=== PATIENT | male | born 1960 | race Caucasian/White ===

== ENCOUNTER 2019-08-21 11:48 | Emergency (ER) | payer OTHER ==
[2019-08-21] MEDS ORDERED: Sodium Chloride 0.9% 1,000 ML IV SCH (12:00)
[2019-08-21] MEDS ORDERED: EPINEPHrine 1 MG/ML SDV IM ONE (12:07)
[2019-08-21] MEDS ORDERED: diphenhydrAMINE 50 MG Cap PO ONE (13:14)
[2019-08-21] MEDS ORDERED: Sodium Chloride 0.9% 500 ML IV ONE (13:35)
--- NOTE | 2019-08-21 17:43 | EDM.PDOC ---
ED HPI GENERAL MEDICAL PROBLEM - General Chief Complaint: Allergic Reaction Stated Complaint: ALLERGIC REACTION Time Seen by Provider: 08/21/19 11:55 Source of Information: Reports: Patient History Limitations: Reports: No Limitations - History of Present Illness INITIAL COMMENTS - FREE TEXT/NARRATIVE: This is a 58yo M who was recently bit by bees and now having a whole body re action. He notes 3-4 or maybe a few more bites of the neck area. He denies prior anaphylactic reactions. Denies any shortness of breath, no scratchy throat, but does have lip swelling and facial swelling. Onset: Sudden Location: Reports: Generalized Severity: Moderate - Related Data Allergies Allergy/AdvReac Type Severity Reaction Status Date / Time No Known Allergies Allergy Verified 08/21/19 12:06 Home Meds: Home Meds NK [No Known Home Meds] 08/21/19 [History] Past Medical History - Past Surgical History GI Surgical History: Reports: Hernia Repair/Other Social & Family History - Family History Family Medical History: Noncontributory - Tobacco Use Smoking Status *Q: Current Every Day Smoker Years of Tobacco use: 30 Packs/Tins Daily: 0.5 ED ROS ALLERGIC REACTION - Review of Systems Review Of Systems: Comprehensive ROS is negative, except as noted in HPI. ED EXAM GENERAL NO PERIP PULSE - Physical Exam Exam: See Below Exam Limited By: No Limitations General Appearance: Alert, WD/WN, Mild Distress Ears: Normal External Exam Nose: Normal Inspection Throat/Mouth: Other (mildly swollen lips) Respiratory/Chest: No Respiratory Distress, Lungs Clear, Normal Breath Sounds, No Accessory Muscle Use, Chest Non-Tender Cardiovascular: Normal Peripheral Pulses, Tachycardia Back Exam: Normal Inspection Extremities: Normal Inspection, No Pedal Edema Skin Exam: Rash Course - Vital Signs Last Recorded V/S: Last Vital Signs Temp 37.2 C 08/21/19 12:39 Pulse 134 H 08/21/19 13:51 Resp 14 08/21/19 13:27 BP 135/90 08/21/19 13:51 Pulse Ox 96 08/21/19 13:51 - Orders/Labs/Meds Meds: Medications Discontinued Medications Generic Name Dose Route Start Last Admin Trade Name Freq PRN Reason Stop Dose Admin Diphenhydramine HCl 50 mg 08/21/19 13:14 08/21/19 11:58 Benadryl PO 08/21/19 13:15 50 mg ONETIME ONE Administration Epinephrine HCl 0.5 mg 08/21/19 12:07 08/21/19 11:50 Adrenalin IM 08/21/19 12:08 0.8 mg ONETIME ONE Administration Sodium Chloride 1,000 mls @ 999 mls/hr 08/21/19 12:00 08/21/19 13:22 Normal Saline IV 999 mls/hr ASDIRECTED DEMETRIUS Administration Sodium Chloride 500 mls @ 999 mls/hr 08/21/19 13:35 08/21/19 13:36 Normal Saline IV 08/21/19 14:05 999 mls/hr .BOLUS ONE Administration Departure - Departure Time of Disposition: 14:20 Disposition: Home, Self-Care 01 Condition: Good Clinical Impression: Wasp sting-induced anaphylaxis Qualifiers: Encounter type: initial encounter Injury intent: accidental or unintentional Qualified Code(s): T63.461A - Toxic effect of venom of wasps, accidental (unintentional), initial encounter - Discharge Information Instructions: Diphenhydramine capsules or tablets, How to Use an Auto-Injector Pen, Anaphylactic Reaction, Adult, [id number] Referrals: PCP,None [Primary Care Provider] - Forms: ED Department Discharge Care Plan Goals: Take 2 tablets (total 50mg) every 6 hours until symptoms of rash and edema subside. Then can take 25mg every 6 hours as symptoms lessen. Carry your epi pen with you. Can also carry benadryl with you. Sepsis Event Note (ED) - Evaluation Sepsis Screening Result: No Definite Risk - Focused Exam Vital Signs: Vital Signs Temp Pulse Resp BP Pulse Ox 08/21/19 13:51 134 H 135/90 96 08/21/19 13:27 14 135/90 96 08/21/19 12:39 37.2 C 110 H 20 147/97 H 96 08/21/19 12:00 37.7 C 120 H 16 147/99 H 95 - Problem List & Annotations (1) Wasp sting-induced anaphylaxis SNOMED Code(s): 915910102 Code(s): T63.461A - TOXIC EFFECT OF VENOM OF WASPS, ACCIDENTAL, INIT Status: Acute Qualifiers: Encounter type: initial encounter Injury intent: accidental or unintentional Qualified Code(s): T63.461A - Toxic effect of venom of wasps, accidental (unintentional), initial encounter - Problem List Review Problem List Initiated/Reviewed/Updated: Yes - Assessment/Plan Plan: Counseled on prevention and use of epi pen and benadryl. Discussed close f/u until resolution and rtc for PCP evaluation this week.
== END 2019-08-21 14:20 | disposition home or self-care (01) ==
LOC: LB.ED 11:48
DX: T63.461A Toxic effect of venom of wasps, accidental (unintentional), initial encounter (principal); T78.2XXA Anaphylactic shock, unspecified, initial encounter; F17.210 Nicotine dependence, cigarettes, uncomplicated
CPT/HCPCS: 96372; 99282; A9270; J0171; J7030; J7040

== ENCOUNTER 2021-07-22 13:12 | Emergency (ER) | payer OTHER ==
[2021-07-22] MEDS ORDERED: hydrALAZINE 20 MG/ML SDV IVPUSH ONE ×2 (13:53→16:20)
[2021-07-22] MEDS ORDERED: Sodium Chloride 0.9% 10 ML Syringe FLUSH PRN (13:53)
[2021-07-22] MEDS ORDERED: hydrALAZINE 20 MG/ML SDV ONE ×2 (14:26→16:33)
[2021-07-22 15:14] LABS: TROPONIN I HIGH SENSITIVITY 6.5 pg/ml (<=60.4)
== END 2021-07-22 16:42 | disposition home or self-care (01) ==
LOC: LB.ED 13:12
DX: I16.0 Hypertensive urgency (principal); I10 Essential (primary) hypertension; R25.1 Tremor, unspecified; I48.91 Unspecified atrial fibrillation; Z87.891 Personal history of nicotine dependence
CPT/HCPCS: 36415; 80048; 81001; 84484; 85025; 93005; 96374; 99283; J0360; 93010; 99284

== ENCOUNTER 2021-09-03 08:15 | Day surgery (SDC) | payer OTHER ==
[~2021-09-03 08:15] MED LIST: Metoclopramide 10 MG/2 ML SDV IV PRN
[2021-09-03] MEDS: Sodium Chloride 0.9% 1,000 ML IV SCH (08:45)
[2021-09-03] MEDS ORDERED: Propofol 1,000 MG/100 ML SDV ONE (10:00)
== END 2021-09-03 11:25 | disposition home or self-care (01) ==
LOC: LB.SDS 08:15
PROVIDERS: ATTEND Surgery
DX: Z12.11 Encounter for screening for malignant neoplasm of colon (principal); D12.3 Benign neoplasm of transverse colon; K57.30 Diverticulosis of large intestine without perforation or abscess without bleeding; I10 Essential (primary) hypertension; I48.91 Unspecified atrial fibrillation; G47.33 Obstructive sleep apnea (adult) (pediatric)
CPT/HCPCS: 45384; J2704; J7030; 88305

== ENCOUNTER 2022-04-07 08:08 | Observation (INO) | payer OTHER ==
[2022-04-07] MEDS ORDERED: Sodium Chloride 0.9% 10 ML Syringe FLUSH PRN ×2 (08:34→08:37)
[2022-04-07] MEDS ORDERED: Ondansetron 4 MG/2 ML SDV IVPUSH ONE (08:38)
[2022-04-07] MEDS ORDERED: Sodium Chloride 0.9% 1,000 ML IV SCH (08:45)
[2022-04-07] MEDS ORDERED: Ondansetron 4 MG/2 ML SDV ONE (08:55)
[2022-04-07] MEDS ORDERED: Prochlorperazine 10 MG/2 ML SDV IVPUSH ONE ×2 (09:15→10:37)
[2022-04-07] MEDS ORDERED: Labetalol 100 MG/20 ML MDV IVPUSH ONE (09:33)
[2022-04-07] MEDS ORDERED: Prochlorperazine 10 MG/2 ML SDV ONE (09:33)
[2022-04-07] MEDS ORDERED: Labetalol 100 MG/20 ML MDV ONE (09:44)
[2022-04-07] MEDS ORDERED: hydrALAZINE 20 MG/ML SDV IVPUSH ONE ×3 (09:59→10:15)
[2022-04-07] MEDS ORDERED: hydrALAZINE 20 MG/ML SDV ONE (10:11)
[2022-04-07] MEDS ORDERED: Metoprolol Tartrate 5 MG/5 ML SDV IVPUSH ONE (10:33)
[2022-04-07] MEDS: Lactated Ringers 1,000 ML IV SCH ×2 (10:35→15:25)
[2022-04-07] MEDS ORDERED: Metoprolol Tartrate 5 MG/5 ML SDV ONE (10:51)
[2022-04-07] MEDS ORDERED: LORazepam 2 MG/ML SDV IVPUSH ONE (11:08)
[2022-04-07] MEDS ORDERED: LORazepam 2 MG/ML SDV ONE (11:20)
[2022-04-07] MEDS ORDERED: Promethazine 12.5 MG in Sodium Chloride 0.9% 50 ML IV PRN (14:14)
[2022-04-07] MEDS: Propranolol 20 MG Tab PO SCH ×2 (18:50→19:06)
[2022-04-07] MEDS ORDERED: Hydrochlorothiazide 12.5 MG Cap PO SCH (20:00)
[2022-04-07] MEDS ORDERED: FLECAINIDE 50MG TABLET PO SCH (20:00)
[2022-04-07] MEDS ORDERED: Lisinopril 5 MG Tab PO SCH (20:00)
[2022-04-07] MEDS ORDERED: Apixaban 5 MG Tab PO SCH (20:00)
[2022-04-07] MEDS: Apixaban 5 MG Tab PO SCH (20:38)
[2022-04-07] MEDS: Lisinopril 5 MG Tab PO SCH (20:39)
[2022-04-07] MEDS: Metoprolol Tartrate 50 MG Tab PO SCH (20:41)
[2022-04-08] MEDS: Lactated Ringers 1,000 ML IV SCH (03:02)
[2022-04-08] MEDS ORDERED: Non-Formulary Medication 1 Each (Levothyroxine [Levothyroxine] 125 MCG Tablet) PO SCH (07:00)
[2022-04-08] MEDS ORDERED: LEVOTHYROXINE 125 MCG PO SCH (07:00)
[2022-04-08] MEDS ORDERED: Metoprolol Succinate 25 MG Tab.ER PO SCH (08:00)
[2022-04-08] MEDS ORDERED: FLECAINIDE 50 MG PO SCH ×2 (08:00)
[2022-04-08] MEDS ORDERED: Non-Formulary Medication 1 Each (Magnesium [Magnesium] 200 MG Tablet) PO SCH (08:00)
[2022-04-08] MEDS ORDERED: Folic Acid 0.4 MG Tab PO SCH (08:00)
[2022-04-08] MEDS: Apixaban 5 MG Tab PO SCH (09:22)
[2022-04-08] MEDS: Lisinopril 5 MG Tab PO SCH (09:22)
[2022-04-08] MEDS: Propranolol 20 MG Tab PO SCH (09:22)
[2022-04-08] MEDS: Metoprolol Tartrate 50 MG Tab PO SCH (09:24)
[2022-04-08] MEDS ORDERED: Magnesium Oxide 400 MG Tab ONE (09:30)
== END 2022-04-08 12:07 | disposition home or self-care (01) ==
LOC: LB.ED 08:08 → LB.MS 14:14
PROVIDERS: ADMIT Surgery; ATTEND Surgery
DX: I16.0 Hypertensive urgency (principal); G25.2 Other specified forms of tremor; K52.9 Noninfective gastroenteritis and colitis, unspecified; G91.9 Hydrocephalus, unspecified; I48.91 Unspecified atrial fibrillation; G47.30 Sleep apnea, unspecified; J44.9 Chronic obstructive pulmonary disease, unspecified; F32.A Depression, unspecified; E03.9 Hypothyroidism, unspecified; Z79.899 Other long term (current) drug therapy; Z91.030 Bee allergy status; Z79.890 Hormone replacement therapy; Z98.890 Other specified postprocedural states; Z20.822 Contact with and (suspected) exposure to COVID-19
CPT/HCPCS: 36415; 70450; 80053; 81003; 83605; 83735; 84100; 84443; 84484; 85027; 87635; 93005; 93010; 96361; 96374; 96375; 96376; 99222; 99238; 99285; A9270; G0378; J0360; J0780; J2060; J2405; J3490; J7030; J7120; U0002

== ENCOUNTER 2022-09-14 11:08 | Emergency (ER) | payer OTHER ==
[2022-09-14 11:25] VITALS: BP 154/98; PULSE 66
[2022-09-14 12:02] LABS: BASOPHILS ABSOLUTE AUTO 0.07 K/uL (0.02-0.10); BASOPHILS PERCENT AUTO 1.1 % (0.0-0.5); EOSINOPHILS ABSOLUTE AUTO 0.19 K/uL (0.04-0.40); HEMATOCRIT 43.1 % (40.0-54.0); HEMOGLOBIN 14.6 g/dL (13.0-18.0); LYMPHOCYTES ABSOLUTE AUTO 1.91 K/uL (1.50-4.00); LYMPHOCYTES PERCENT AUTO 30.3 % (20.0-40.0); MEAN CORPUSCULAR HEMOGLOBIN 34.4 pg (27.0-32.0); MEAN CORPUSCULAR HGB CONC 33.9 g/dL (31.0-35.0); MEAN CORPUSCULAR VOLUME 101 fL (76-96); MEAN PLATELET VOLUME 9.7 fL (6.0-10.0); MONOCYTES ABSOLUTE AUTO 0.64 K/uL (0.20-0.80); MONOCYTES PERCENT AUTO 10.2 % (3.0-10.0); NEUTROPHILS ABSOLUTE AUTO 3.49 K/uL (2.00-7.50); NEUTROPHILS PERCENT AUTO 55.4 % (45.0-70.0); PLATELET COUNT,PLT 202 K/uL (150-400); RED BLOOD CELL COUNT 4.25 M/uL (4.50-6.50); RED CELL DISTRIBUTION WIDTH 11.4 % (11.0-16.0); WHITE BLOOD CELL COUNT,WBC 6.3 K/uL (4.0-11.0)
[2022-09-14 12:34] LABS: A/G RATIO 0.9 (0.8-2.0); ALBUMIN 3.4 g/dL (3.4-5.0); ANION GAP 13.9 mmol/L (5.0-15.0); BILIRUBIN TOTAL 0.3 mg/dL (0.0-1.0); CARBON DIOXIDE,CO2 27.1 mmol/L (21.0-32.0); CREATININE 1.15 mg/dL (0.70-1.30); EST CRCL DRUG DOSING (CG) 69.65 mL/min; PROTEIN TOTAL,TP 7.4 g/dL (6.4-8.2)
[2022-09-14 12:34] LABS: APPEARANCE,URINE CLEAR (CLEAR); BILIRUBIN,URINE NEGATIVE (NEGATIVE); GLUCOSE,URINE NEGATIVE (NEGATIVE); KETONES,URINE NEGATIVE (NEGATIVE); LEUKOCYTE ESTERASE,URINE NEGATIVE (NEGATIVE); NITRITE,URINE NEGATIVE (NEGATIVE); OCCULT BLOOD,URINE NEGATIVE (NEGATIVE); PROTEIN,URINE NEGATIVE (NEGATIVE); UROBILINOGEN,URINE 0.2 E.U./dL (0.2-1.0)
[2022-09-14 12:39] LABS: COLOR,URINE YELLOW; RBC,URINE 0-5 /HPF; WBC,URINE 0-5 /HPF
[2022-09-14 12:41] LABS: AMPHETAMINES SCREEN, URINE NEGATIVE (NEGATIVE); BARBITURATE SCREEN,URINE NEGATIVE (NEGATIVE); BENZODIAZEPINES SCREEN,URINE NEGATIVE (NEGATIVE); METHADONE SCREEN, URINE NEGATIVE (NEGATIVE); METHAMPHETAMINES SCREEN, URINE NEGATIVE (NEGATIVE); OXYCODONE SCREEN,URINE NEGATIVE (NEGATIVE); THC SCREEN,URINE 50 NG/ML NEGATIVE (NEGATIVE)
[2022-09-14 12:44] LABS: MAGNESIUM 2.1 mg/dL (1.8-2.4)
== END 2022-09-14 13:17 ==
LOC: LB.ED 11:08
DX: F10.10 Alcohol abuse, uncomplicated (principal); I48.91 Unspecified atrial fibrillation; I10 Essential (primary) hypertension; J44.9 Chronic obstructive pulmonary disease, unspecified; Z79.01 Long term (current) use of anticoagulants; Z79.899 Other long term (current) drug therapy; Z91.030 Bee allergy status
CPT/HCPCS: 36415; 80053; 80307; 81001; 83735; 84443; 85025; 99283; 99284

== ENCOUNTER 2024-05-27 08:05 | Emergency (ER) | payer MEDICAID ==
[2024-05-27 08:45] LABS: BASOPHILS ABSOLUTE AUTO 0.08 K/uL (0.02-0.10); EOSINOPHILS ABSOLUTE AUTO 0.21 K/uL (0.04-0.40); EOSINOPHILS PERCENT AUTO 2.7 % (1.0-5.0); HEMOGLOBIN 13.8 g/dL (13.0-18.0); LYMPHOCYTES ABSOLUTE AUTO 1.12 K/uL (1.50-4.00); LYMPHOCYTES PERCENT AUTO 14.2 % (20.0-40.0); MEAN CORPUSCULAR HEMOGLOBIN 31.5 pg (27.0-32.0); MEAN CORPUSCULAR HGB CONC 32.9 g/dL (31.0-35.0); MEAN CORPUSCULAR VOLUME 96 fL (76-96); MEAN PLATELET VOLUME 9.5 fL (6.0-10.0); MONOCYTES ABSOLUTE AUTO 0.72 K/uL (0.20-0.80); MONOCYTES PERCENT AUTO 9.1 % (3.0-10.0); NEUTROPHILS ABSOLUTE AUTO 5.74 K/uL (2.00-7.50); PLATELET COUNT,PLT 291 K/uL (150-400); RED BLOOD CELL COUNT 4.38 M/uL (4.50-6.50); WHITE BLOOD CELL COUNT,WBC 7.9 K/uL (4.0-11.0)
[2024-05-27] MEDS: Hydrochlorothiazide 25 MG Tab PO ONE (08:51)
[2024-05-27] MEDS: Metoprolol Tartrate 50 MG Tab PO ONE (08:52)
[2024-05-27] MEDS: Lisinopril 5 MG Tab PO ONE (08:52)
[2024-05-27 09:06] LABS: A/G RATIO 0.6 (0.8-2.0); ALBUMIN 2.7 g/dL (3.4-5.0); ANION GAP 12.8 mmol/L (5.0-15.0); BILIRUBIN TOTAL 0.4 mg/dL (0.0-1.0); BUN/CREATININE RATIO 9.8 (6-25); CALCIUM 8.8 mg/dL (8.5-10.1); CARBON DIOXIDE,CO2 24.3 mmol/L (21.0-32.0); CREATININE 0.92 mg/dL (0.70-1.30); EST CRCL DRUG DOSING (CG) 84.86 mL/min; POTASSIUM,K 4.1 mmol/L (3.5-5.1); PROTEIN TOTAL,TP 7.2 g/dL (6.4-8.2)
== END 2024-05-27 13:01 ==
LOC: LB.ED 08:05
DX: G44.59 Other complicated headache syndrome (principal); I10 Essential (primary) hypertension; I48.91 Unspecified atrial fibrillation; J44.9 Chronic obstructive pulmonary disease, unspecified; E03.9 Hypothyroidism, unspecified; Z91.030 Bee allergy status; Z79.899 Other long term (current) drug therapy; Z79.01 Long term (current) use of anticoagulants
CPT/HCPCS: 36415; 70450; 80053; 85025; 86140; 99285; A0425; A0428; A9270-GY

== ENCOUNTER 2024-06-17 08:37 | Emergency (ER) | payer MEDICAID ==
[2024-06-17] MEDS ORDERED: Dexamethasone 4 MG Tab ONE (09:30)
[2024-06-17] MEDS ORDERED: Sodium Chloride 0.9% 10 ML Syringe FLUSH PRN (09:32)
[2024-06-17] MEDS: Dexamethasone 4 MG Tab PO ONE (09:44)
== END 2024-06-17 10:00 | disposition home or self-care (01) ==
LOC: LB.ED 08:37
DX: G93.6 Cerebral edema (principal); C78.00 Secondary malignant neoplasm of unspecified lung; I48.91 Unspecified atrial fibrillation; I10 Essential (primary) hypertension; J44.9 Chronic obstructive pulmonary disease, unspecified; E03.9 Hypothyroidism, unspecified; Z91.030 Bee allergy status; Z79.01 Long term (current) use of anticoagulants; Z79.890 Hormone replacement therapy; Z79.899 Other long term (current) drug therapy
CPT/HCPCS: 99284; J8540

== ENCOUNTER 2024-07-01 10:57 | Inpatient (IN) | payer MEDICAID ==
[2024-07-01] MEDS ORDERED: Sodium Chloride 0.9% 10 ML Syringe FLUSH PRN (11:21)
[2024-07-01 12:00] LABS: HEMATOCRIT 43.3 % (40.0-54.0); HEMOGLOBIN 14.9 g/dL (13.0-18.0); MEAN CORPUSCULAR HEMOGLOBIN 31.5 pg (27.0-32.0); MEAN CORPUSCULAR HGB CONC 34.4 g/dL (31.0-35.0); MEAN PLATELET VOLUME 10.1 fL (6.0-10.0); RED BLOOD CELL COUNT 4.73 M/uL (4.50-6.50); RED CELL DISTRIBUTION WIDTH 12.8 % (11.0-16.0); WHITE BLOOD CELL COUNT,WBC 15.3 K/uL (4.0-11.0)
[2024-07-01] MEDS: Sodium Chloride 0.9% 1,000 ML IV SCH (12:20)
[2024-07-01 12:24] LABS: BLOOD UREA NITROGEN,BUN 27 mg/dL (8-26); BUN/CREATININE RATIO 26.2 (6-25); CALCIUM 8.8 mg/dL (8.5-10.1); CARBON DIOXIDE,CO2 26.9 mmol/L (21.0-32.0); CHLORIDE,CL 94 mmol/L (98-107); CREATININE 1.03 mg/dL (0.70-1.30); ESTIMATED GFR 82 mL/min (>60); GLUCOSE RANDOM 396 mg/dL (74-100); MAGNESIUM 1.6 mg/dL (1.8-2.4); POTASSIUM,K 4.9 mmol/L (3.5-5.1); SODIUM,NA 130 mmol/L (136-145); TROPONIN I HIGH SENSITIVITY 10.8 pg/ml (<=60.4)
[2024-07-01] MEDS: Metoprolol Tartrate 5 MG/5 ML SDV IVPUSH ONE (13:12)
[2024-07-01 13:30] LABS: APPEARANCE,URINE CLEAR (CLEAR); BILIRUBIN,URINE NEGATIVE (NEGATIVE); COLOR,URINE YELLOW; GLUCOSE,URINE >=1000 mg/dL (NEGATIVE); KETONES,URINE TRACE mg/dL (NEGATIVE); LEUKOCYTE ESTERASE,URINE NEGATIVE (NEGATIVE); NITRITE,URINE NEGATIVE (NEGATIVE); OCCULT BLOOD,URINE NEGATIVE (NEGATIVE); PROTEIN,URINE NEGATIVE (NEGATIVE); UROBILINOGEN,URINE 0.2 E.U./dL (0.2-1.0)
[2024-07-01] MEDS: Dexamethasone 4 MG/ML SDV IVPUSH ONE (13:41)
[2024-07-01] MEDS: Insulin Regular, Human 100 Units/ML 10 ML Vial IV ONE (13:46)
[2024-07-01] MEDS ORDERED: levETIRAcetam 500 MG Tab PO SCH (14:00)
[2024-07-01] MEDS: levETIRAcetam 500 MG Tab PO ONE (14:01)
[2024-07-01] MEDS: Sodium Chloride 3% 100 ML IV ONE (14:36)
[2024-07-01] MEDS ORDERED: 50% Dextrose in Water 50 ML Syringe IVPUSH PRN ×2 (15:30→21:23)
[2024-07-01] MEDS ORDERED: Glucagon,Human Recombinant 1 MG Vial IM PRN ×2 (15:30→21:23)
[2024-07-01] MEDS ORDERED: Flecainide 100 MG Tab PO SCH (15:45)
[2024-07-01] MEDS: Metoprolol Succinate 25 MG Tab.ER PO SCH (16:10)
[2024-07-01] MEDS: diazePAM 5 MG/ML MDV IV ONE (16:11)
[2024-07-01] MEDS: Insulin Lispro 100 Unit/ML 3 ML KwikPen SUBCUT SCH (19:00)
[2024-07-01] MEDS: Acetaminophen/HYDROcodone 325-5 MG Tab PO SCH (19:00)
[2024-07-01] MEDS: Dorzolamide/Timolol 2%-0.5% Ophth Soln 10 ML Bottle EYEBOTH SCH (20:19)
[2024-07-01] MEDS: Apixaban 5 MG Tab PO SCH (20:19)
[2024-07-01] MEDS: Dexamethasone 4 MG Tab PO SCH (20:19)
[2024-07-01] MEDS: Brimonidine 0.2% Ophth Soln 5 ML Bottle EYEBOTH SCH (20:19)
[2024-07-01] MEDS: Flecainide 100 MG Tab PO SCH (20:30)
[2024-07-01] MEDS: Latanoprost 0.005% Ophth Soln 2.5 ML Bottle EYEBOTH SCH (20:32)
[2024-07-01] MEDS: Insulin Lispro 100 Unit/ML 3 ML KwikPen SUBCUT ONE (21:30)
[2024-07-02] MEDS: Levothyroxine 100 MCG Tab PO SCH (06:07)
[2024-07-02] MEDS: Levothyroxine 25 MCG Tab PO SCH (06:08)
[2024-07-02] MEDS: Pantoprazole 40 MG Tab.CR PO SCH (07:36)
[2024-07-02 07:40] VITALS: BP 112/82; PULSE 67
[2024-07-02] MEDS ORDERED: Latanoprost 0.005% Ophth Soln 2.5 ML Bottle EYEBOTH SCH (08:31)
[2024-07-02 08:48] LABS: HEMATOCRIT 42.1 % (40.0-54.0); HEMOGLOBIN 14.3 g/dL (13.0-18.0); MEAN CORPUSCULAR HEMOGLOBIN 31.7 pg (27.0-32.0); MEAN PLATELET VOLUME 10.5 fL (6.0-10.0); RED BLOOD CELL COUNT 4.51 M/uL (4.50-6.50); RED CELL DISTRIBUTION WIDTH 13.3 % (11.0-16.0); WHITE BLOOD CELL COUNT,WBC 15.1 K/uL (4.0-11.0)
[2024-07-02 09:13] LABS: ANION GAP 11.4 mmol/L (5.0-15.0); BUN/CREATININE RATIO 23.8 (6-25); CALCIUM 8.5 mg/dL (8.5-10.1); CARBON DIOXIDE,CO2 27.7 mmol/L (21.0-32.0); CREATININE 0.8 mg/dL (0.70-1.30); EST CRCL DRUG DOSING (CG) 97.59 mL/min; POTASSIUM,K 4.1 mmol/L (3.5-5.1)
== END 2024-07-02 10:56 | disposition home or self-care (01) | DRG 81 ==
LOC: LB.ED 10:57 → LB.MS 15:00
PROVIDERS: ADMIT Surgery; ATTEND Surgery
DX: G93.6 Cerebral edema (principal); E87.1 Hypo-osmolality and hyponatremia; H53.47 Heteronymous bilateral field defects; I48.91 Unspecified atrial fibrillation; Z68.27 Body mass index [BMI] 27.0-27.9, adult; H54.7 Unspecified visual loss; I10 Essential (primary) hypertension; J44.9 Chronic obstructive pulmonary disease, unspecified; F41.9 Anxiety disorder, unspecified; F32.A Depression, unspecified; E86.0 Dehydration; R73.9 Hyperglycemia, unspecified; G44.59 Other complicated headache syndrome; E03.9 Hypothyroidism, unspecified; E66.9 Obesity, unspecified; Z85.118 Personal history of other malignant neoplasm of bronchus and lung; Z91.030 Bee allergy status; Z85.841 Personal history of malignant neoplasm of brain; Z79.01 Long term (current) use of anticoagulants; Z98.890 Other specified postprocedural states; Z79.899 Other long term (current) drug therapy
CPT/HCPCS: 36415; 70450; 71045; 80048; 81003; 82947; 83735; 84484; 85027; 93005; 93010; 96374; 96375; 99222; 99239; 99285-25; A9270-GY; J1100; J1815; J3360; J3490; J7030; J7131; J8540

== ENCOUNTER 2024-07-28 16:06 | Inpatient (IN) | payer MEDICAID ==
[2024-07-28 17:47] LABS: HEMATOCRIT 45.6 % (40.0-54.0); HEMOGLOBIN 15.2 g/dL (13.0-18.0); MEAN CORPUSCULAR HEMOGLOBIN 31.5 pg (27.0-32.0); MEAN CORPUSCULAR HGB CONC 33.3 g/dL (31.0-35.0); MEAN PLATELET VOLUME 11.5 fL (6.0-10.0); RED BLOOD CELL COUNT 4.82 M/uL (4.50-6.50); RED CELL DISTRIBUTION WIDTH 14.2 % (11.0-16.0); WHITE BLOOD CELL COUNT,WBC 10.9 K/uL (4.0-11.0)
[2024-07-28 17:48] LABS: APPEARANCE,URINE CLEAR (CLEAR); BILIRUBIN,URINE NEGATIVE (NEGATIVE); COLOR,URINE YELLOW; GLUCOSE,URINE >=1000 mg/dL (NEGATIVE); KETONES,URINE NEGATIVE (NEGATIVE); LEUKOCYTE ESTERASE,URINE NEGATIVE (NEGATIVE); NITRITE,URINE NEGATIVE (NEGATIVE); OCCULT BLOOD,URINE NEGATIVE (NEGATIVE); PROTEIN,URINE TRACE mg/dL (NEGATIVE)
[2024-07-28] MEDS: Morphine 4 MG/ML VIAL IVPUSH ONE ×2 (17:52→20:00)
[2024-07-28] MEDS: Sodium Chloride 0.9% 10 ML Syringe FLUSH PRN (17:53)
[2024-07-28 18:04] LABS: RBC,URINE NOT SEEN /HPF; WBC,URINE NOT SEEN /HPF
[2024-07-28 18:07] LABS: A/G RATIO 0.5 (0.8-2.0); ALBUMIN 2.2 g/dL (3.4-5.0); ANION GAP 10.1 mmol/L (5.0-15.0); BILIRUBIN TOTAL 0.3 mg/dL (0.0-1.0); BUN/CREATININE RATIO 31.8 (6-25); CALCIUM 9.7 mg/dL (8.5-10.1); CREATININE 0.88 mg/dL (0.70-1.30); EST CRCL DRUG DOSING (CG) 88.72 mL/min; MAGNESIUM 1.8 mg/dL (1.8-2.4); POTASSIUM,K 4.1 mmol/L (3.5-5.1); PROTEIN TOTAL,TP 6.4 g/dL (6.4-8.2)
[2024-07-28 18:24] LABS: HEMOGLOBIN A1C 13.6 % (< 5.7)
[2024-07-28] MEDS: Albuterol/Ipratropium 3.0-0.5 MG/3 ML Neb Soln NEB SCH (18:36)
[2024-07-28] MEDS: Sodium Chloride 0.9% 50 ML SDV FLUSH ONE (19:50)
[2024-07-28] MEDS: Iopamidol 755 Mg/ML 100 ML Bottle IV SCH (19:50)
[2024-07-28] MEDS: Albuterol 0.083% 2.5 MG/3 ML Neb Soln NEB ONE (19:59)
[2024-07-28] MEDS: Lactated Ringers 1,000 ML IV SCH (20:03)
[2024-07-28] MEDS ORDERED: Acetaminophen/HYDROcodone 325-5 MG Tab PO PRN (21:17)
[2024-07-28] MEDS ORDERED: Ondansetron 4 MG/2 ML SDV IV PRN (21:17)
[2024-07-28] MEDS: Azithromycin 500 MG in Sodium Chloride 0.9% 250 ML IV ONE (21:38)
[2024-07-29] MEDS: Morphine 2 MG/ML SYRINGE IVPUSH PRN (02:08)
[2024-07-29] MEDS: Albuterol/Ipratropium 3.0-0.5 MG/3 ML Neb Soln NEB SCH (03:22)
[2024-07-29] MEDS ORDERED: Metoprolol Tartrate 5 MG in Sodium Chloride 0.9% 50 ML IV ONE ×2 (05:44→05:47)
[2024-07-29] MEDS ORDERED: Albuterol 0.083% 2.5 MG/3 ML Neb Soln NEB PRN (05:45)
[2024-07-29] MEDS: Furosemide 20 MG/2 ML VIAL IVPUSH ONE (05:51)
[2024-07-29] MEDS: Metoprolol Tartrate 5 MG/5 ML SDV IVPUSH ONE (05:53)
[2024-07-29] MEDS: LORazepam 2 MG/ML SDV IVPUSH ONE ×3 (06:40→10:43)
[2024-07-29] MEDS: Morphine 4 MG/ML VIAL IVPUSH ONE (06:43)
[2024-07-29] MEDS: LORazepam 2 MG/ML SDV ONE (08:00)
[2024-07-29 08:10] LABS: PCO2 ARTERIAL 38.4 mmHg (35-45)
[2024-07-29 08:11] LABS: BASE EXCESS ARTERIAL 5.9 (-2-2); BICARBONATE,ARTERIAL 29.2 mmol/L (22-26); O2 SATURATION ARTERIAL 99.9 % (95-98); PO2 ARTERIAL 313.3 mmHg (80-105)
[2024-07-29 08:32] LABS: BASOPHILS ABSOLUTE AUTO 0.02 K/uL (0.02-0.10); BASOPHILS PERCENT AUTO 0.1 % (0.0-0.5); EOSINOPHILS ABSOLUTE AUTO 0.05 K/uL (0.04-0.40); EOSINOPHILS PERCENT AUTO 0.4 % (1.0-5.0); HEMATOCRIT 45.4 % (40.0-54.0); HEMOGLOBIN 15.1 g/dL (13.0-18.0); LYMPHOCYTES ABSOLUTE AUTO 1.35 K/uL (1.50-4.00); LYMPHOCYTES PERCENT AUTO 9.8 % (20.0-40.0); MEAN CORPUSCULAR HEMOGLOBIN 31.3 pg (27.0-32.0); MEAN CORPUSCULAR HGB CONC 33.3 g/dL (31.0-35.0); MEAN CORPUSCULAR VOLUME 94 fL (76-96); MEAN PLATELET VOLUME 10.6 fL (6.0-10.0); MONOCYTES ABSOLUTE AUTO 0.18 K/uL (0.20-0.80); MONOCYTES PERCENT AUTO 1.3 % (3.0-10.0); NEUTROPHILS ABSOLUTE AUTO 12.13 K/uL (2.00-7.50); NEUTROPHILS PERCENT AUTO 88.4 % (45.0-70.0); PLATELET COUNT,PLT 54 K/uL (150-400); RED BLOOD CELL COUNT 4.83 M/uL (4.50-6.50); RED CELL DISTRIBUTION WIDTH 14.3 % (11.0-16.0); WHITE BLOOD CELL COUNT,WBC 13.7 K/uL (4.0-11.0)
[2024-07-29 09:29] LABS: ANION GAP 8.7 mmol/L (5.0-15.0); BUN/CREATININE RATIO 30.9 (6-25); CALCIUM 8.9 mg/dL (8.5-10.1); CARBON DIOXIDE,CO2 33.1 mmol/L (21.0-32.0); CREATININE 0.68 mg/dL (0.70-1.30); EST CRCL DRUG DOSING (CG) 114.81 mL/min; POTASSIUM,K 3.8 mmol/L (3.5-5.1)
[2024-07-29] MEDS: methylPREDNISolone Sodium Succinate 40 MG/1 ML SDV IVPUSH SCH (09:49)
[2024-07-29] MEDS: VANCOmycin 1 GM in Sodium Chloride 0.9% 250 ML IV ONE (09:50)
== END 2024-07-29 11:30 | DRG 544 ==
LOC: LB.ED 16:06 → LB.MS 21:45
PROVIDERS: ADMIT Surgery; ATTEND Surgery
PROC: 4A033R1 Measurement of Arterial Saturation, Peripheral, Percutaneous Approach (ICD-10-PCS; principal; 2024-07-28)
PROC: 5A09357 Assistance with Respiratory Ventilation, Less than 24 Consecutive Hours, Continuous Positive Airway Pressure (ICD-10-PCS; principal; 2024-07-28)
DX: M48.56XA Collapsed vertebra, not elsewhere classified, lumbar region, initial encounter for fracture (principal); H54.7 Unspecified visual loss; J98.4 Other disorders of lung; I48.91 Unspecified atrial fibrillation; E78.00 Pure hypercholesterolemia, unspecified; I10 Essential (primary) hypertension; J44.9 Chronic obstructive pulmonary disease, unspecified; G89.29 Other chronic pain; R51.9 Headache, unspecified; F41.9 Anxiety disorder, unspecified; F32.A Depression, unspecified; E11.9 Type 2 diabetes mellitus without complications; E03.9 Hypothyroidism, unspecified; Z86.16 Personal history of COVID-19; Z98.890 Other specified postprocedural states; Z85.841 Personal history of malignant neoplasm of brain; Z91.030 Bee allergy status; Z79.899 Other long term (current) drug therapy; Z79.4 Long term (current) use of insulin; Z79.01 Long term (current) use of anticoagulants; Z85.118 Personal history of other malignant neoplasm of bronchus and lung; Z87.891 Personal history of nicotine dependence
CPT/HCPCS: 36415; 36600; 71045; 71275; 72131; 80048; 80053; 81001; 82803; 83036; 83735; 83880; 84484; 85025; 85027; 85379; 93005; 94640; 94660; 96374; 96376; 99222; 99239; 99285-25; A0425; A0428; A9270-GY; J0456; J1938; J2060; J2270; J2919; J3490; J7050; J7120; Q9967; U0002

== ENCOUNTER 2024-08-10 03:01 | Emergency (ER) | payer MEDICAID ==
[2024-08-10] MEDS: Morphine 10 MG/ML SDV IVPUSH ONE (03:19)
[2024-08-10] MEDS: Morphine 10 MG/ML SDV IVPUSH STA (03:32)
[2024-08-10] MEDS: fentaNYL 12 MCG/HR Transdermal Patch TRDERM STA (03:52)
== END 2024-08-10 04:00 ==
LOC: LB.ED 03:01
DX: M54.9 Dorsalgia, unspecified (principal); I10 Essential (primary) hypertension; I48.91 Unspecified atrial fibrillation; E11.9 Type 2 diabetes mellitus without complications; E66.9 Obesity, unspecified; E78.00 Pure hypercholesterolemia, unspecified; J44.9 Chronic obstructive pulmonary disease, unspecified; Z91.030 Bee allergy status; Z79.890 Hormone replacement therapy; Z79.01 Long term (current) use of anticoagulants; Z79.899 Other long term (current) drug therapy; Z79.4 Long term (current) use of insulin; Z86.16 Personal history of COVID-19; Z68.25 Body mass index [BMI] 25.0-25.9, adult
CPT/HCPCS: 96374; 99283; A9270; J2272

== ENCOUNTER 2024-08-13 00:14 | Emergency (ER) | payer MEDICAID ==
[2024-08-13] MEDS ORDERED: Sodium Chloride 0.9% 10 ML Syringe FLUSH PRN (01:00)
[2024-08-13] MEDS ORDERED: Naloxone 2 MG/2 ML Syringe IVPUSH PRN (01:01)
[2024-08-13] MEDS: Morphine 2 MG/ML SYRINGE SUBCUT ONE (01:13)
[2024-08-13] MEDS ORDERED: Morphine 2 MG/ML SYRINGE SUBCUT PRN (01:31)
[2024-08-13] MEDS ORDERED: Non-Formulary Medication 1 Each PO PRN (01:38)
[2024-08-13] MEDS: Morphine Oral Concentrate 20 MG/ML 30 ML Bottle PO PRN ×2 (02:06→09:08)
[2024-08-13] MEDS: LORazepam 1 MG Tab PO PRN (02:16)
[2024-08-13] MEDS: Morphine 2 MG/ML SYRINGE IVPUSH ONE (08:24)
== END 2024-08-13 10:15 ==
LOC: LB.ED 00:14
DX: J96.11 Chronic respiratory failure with hypoxia (principal); C34.12 Malignant neoplasm of upper lobe, left bronchus or lung; I10 Essential (primary) hypertension; E78.00 Pure hypercholesterolemia, unspecified; E11.9 Type 2 diabetes mellitus without complications; E03.9 Hypothyroidism, unspecified; Z91.030 Bee allergy status; Z79.899 Other long term (current) drug therapy; Z86.16 Personal history of COVID-19
CPT/HCPCS: 71045; 82947; 93005; 96372; 99285; A9270; J2270; 93010; 99284